=== PATIENT | female | born 1995 | race Two or more races ===

== ENCOUNTER → 2022-08-03 | Outpatient (CLI) | payer OTHER ==
[~2022-08-03] MED LIST: VIEN1TAB PO
== END ==
LOC: M LABSMTC 08:58
PROVIDERS: ATTEND Anesthesiology
DX: Z01.818 Encounter for other preprocedural examination (principal); Z11.52 Encounter for screening for COVID-19

== ENCOUNTER 2022-08-08 10:30 | Day surgery (SDC) | payer OTHER ==
[~2022-08-08] VITALS: Ht 152.4 cm; Wt 68.0 kg
[2022-08-08] MEDS ORDERED: CLINDAMYCIN 900 MG in IV 1 EA IV ONE (11:05)
[2022-08-08] MEDS ORDERED: LR 1,000 ML IV SCH (11:25)
[2022-08-08] MEDS ORDERED: LIDOCAINE 2% 100MG/5ML SDV (FOR ANES.) As Ordered ONE (12:02)
[2022-08-08] MEDS ORDERED: ROCURONIUM BROMIDE 50MG/5ML VIAL As Ordered ONE (12:02)
[2022-08-08] MEDS ORDERED: ONDANSETRON 4MG 2ML VIAL As Ordered ONE (12:02)
[2022-08-08] MEDS ORDERED: propofoL 200 MG/20 ML VIAL As Ordered ONE (12:02)
[2022-08-08] MEDS ORDERED: SUGAMMADEX SODIUM 500 MG/5 ML VIAL (BRIDION) As Ordered ONE (12:02)
[2022-08-08] MEDS ORDERED: MIDAZOLAM INJ 2MG/2ML VIAL As Ordered ONE (12:25)
[2022-08-08] MEDS ORDERED: fentaNYL 100 MCG/2 ML INJECTION As Ordered ONE (12:25)
[2022-08-08] MEDS ORDERED: EPINEPHrine 1MG/ML INJ 30ML MD-VIAL As Ordered ONE (12:28)
[2022-08-08] MEDS ORDERED: SILVER NITRATE APPLICATOR (1 = QTY 10) As Ordered ONE (12:28)
[2022-08-08] MEDS ORDERED: MUPIROCIN 2% OINT 22 GM TUBE As Ordered ONE (12:28)
[2022-08-08] MEDS ORDERED: METHYLENE BLUE 0.5% (5MG/ML) 10 ML AMP (PROVAYBLUE) As Ordered ONE (12:28)
[2022-08-08] MEDS ORDERED: OXYMETAZOLINE 0.05% NASAL SPRAY (AFRIN) As Ordered ONE (12:28)
[2022-08-08] MEDS ORDERED: THROMBIN 5,000 UNITS VIAL As Ordered ONE (12:28)
[2022-08-08] MEDS ORDERED: LIDOCAINE 1% SDV 30ML VIAL As Ordered ONE (12:51)
[2022-08-08] MEDS ORDERED: LIDOCAINE W/EPINEPHRINE 1% 20ML VIAL As Ordered ONE (12:51)
[2022-08-08] MEDS ORDERED: ACETAMINOPHEN 1000MG 100ML IV BAG As Ordered ONE ×2 (12:52→14:54)
[2022-08-08] MEDS ORDERED: ESMOLOL INJ 100MG/10ML VIAL As Ordered ONE (13:13)
[2022-08-08 15:56] VITALS: BP 135/74
== END 2022-08-08 16:19 | disposition home or self-care (01) ==
LOC: M SDC 10:30
PROVIDERS: ATTEND Otolaryngology
DX: J35.2 Hypertrophy of adenoids (principal); J34.2 Deviated nasal septum; Z88.0 Allergy status to penicillin
CPT/HCPCS: 31237; 81025; 88305; J0131; J0171; J1100; J2250; J2405; J3010; Q9968; S0077

== ENCOUNTER 2022-10-12 08:20 | Day surgery (SDC) | payer OTHER ==
[~2022-10-12] VITALS: Ht 152.4 cm; Wt 68.9 kg
[2022-10-12] MEDS ORDERED: LR 1,000 ML IV SCH ×2 (08:25→11:10)
[2022-10-12] MEDS ORDERED: CLINDAMYCIN 900 MG in IV 1 EA IV ONE (09:35)
[2022-10-12] MEDS ORDERED: propofoL 200 MG/20 ML VIAL As Ordered ONE (10:23)
[2022-10-12] MEDS ORDERED: ROCURONIUM BROMIDE 50MG/5ML VIAL As Ordered ONE (10:23)
[2022-10-12] MEDS ORDERED: LIDOCAINE 2% 100MG/5ML SDV (FOR ANES.) As Ordered ONE (10:23)
[2022-10-12] MEDS ORDERED: HYDROmorphone HCL 2MG/ML 1ML VIAL As Ordered ONE (10:23)
[2022-10-12] MEDS ORDERED: ONDANSETRON 4MG 2ML VIAL As Ordered ONE (10:33)
[2022-10-12] MEDS ORDERED: ACETAMINOPHEN 1000MG 100ML IV BAG As Ordered ONE (10:35)
[2022-10-12] MEDS ORDERED: SUGAMMADEX SODIUM 500 MG/5 ML VIAL (BRIDION) As Ordered ONE (11:00)
[2022-10-12] MEDS ORDERED: fentaNYL 100 MCG/2 ML INJECTION IV PRN (11:10)
[2022-10-12] MEDS ORDERED: oxyCODONE 5MG TAB PO PRN (11:10)
[2022-10-12] MEDS ORDERED: ONDANSETRON 4MG 2ML VIAL IV PRN (11:10)
[2022-10-12] MEDS: HYDROMORPHONE HCL 0.5 MG/ 0.5 ML SYRINGE IV PRN ×2 (11:49→11:54)
[2022-10-12 13:17] VITALS: BP 165/70
== END 2022-10-12 13:22 | disposition home or self-care (01) ==
LOC: M SDC 08:20
PROVIDERS: ATTEND Otolaryngology
DX: J35.2 Hypertrophy of adenoids (principal); Z79.899 Other long term (current) drug therapy; Z88.0 Allergy status to penicillin
CPT/HCPCS: 42831; 81025; J0131; J1100; J1170; J2405

== ENCOUNTER → 2023-08-01 | Outpatient (REF) | payer OTHER | LOC: M SFHCWAGY 18:10 | PROVIDERS: ATTEND Nurse Practitioner Family | DX: Z12.4 Encounter for screening for malignant neoplasm of cervix (principal); R87.625 Unsatisfactory cytologic smear of vagina | CPT/HCPCS: 87624; G0123 ==

== ENCOUNTER → 2023-08-16 | Outpatient (CLI) | payer OTHER ==
[2023-08-16 07:57] LABS: BASO # 0.1 10^3/uL (0.0-0.2); BASO % 0.8 % (0.0-1.0); EOS # 0.8 10^3/uL (0.0-0.5); EOS % 8.1 % (0.0-3.0); HEMATOCRIT 42.2 % (36.0-47.0); HEMOGLOBIN 13.8 g/dl (12.0-15.5); LYMPH # 1.6 10^3/uL (1.5-5.0); LYMPH % 16.6 % (24.0-44.0); MEAN CORPUSCULAR HEMOGLOBIN 28.1 pg (27.0-33.0); MEAN CORPUSCULAR HGB CONC 32.7 g/dl (32.0-36.5); MEAN CORPUSCULAR VOLUME 85.9 fl (80.0-96.0); MONO # 0.4 10^3/uL (0.0-0.8); MONO % 4.7 % (2.0-8.0); NEUTROPHILS # 6.5 10^3/uL (1.5-8.5); NEUTROPHILS % 69.5 % (36.0-66.0); PLATELET COUNT, AUTOMATED 220 10^3/uL (150-450); RED BLOOD COUNT 4.91 10^6/uL (4.00-5.40); WHITE BLOOD COUNT 9.3 10^3/uL (4.0-10.0)
[2023-08-16 08:22] LABS: ALBUMIN 3.5 G/DL (3.2-5.2); ALKALINE PHOSPHATASE 81 U/L (46-116); ALT/SGPT 12 U/L (7.0-40); AST/SGOT 11 U/L (<34); BILIRUBIN,TOTAL 0.4 MG/DL (0.3-1.2); BLOOD UREA NITROGEN 10 MG/DL (9-23); CALCIUM LEVEL 9.2 MG/DL (8.5-10.1); CARBON DIOXIDE LEVEL 28 MMOL/L (20-31); CHLORIDE LEVEL 111 MMOL/L (98-107); CHOLESTEROL LEVEL 122 MG/DL (<200); CREATININE FOR GFR 0.99 MG/DL (0.55-1.30); GLOMERULAR FILTRATION RATE > 60.0 (>60); GLUCOSE, FASTING 89 MG/DL (60-100); HDL CHOLESTEROL 38.1 MG/DL (>40); LDL CHOLESTEROL 64.3 MG/DL (<100); NON-HDL-C 83.9 MG/DL; POTASSIUM SERUM 4.7 MMOL/L (3.5-5.1); SODIUM LEVEL 144 MMOL/L (136-145); TOTAL PROTEIN 6.6 G/DL (5.7-8.2); TRIGLYCERIDES LEVEL 98 MG/DL (<150)
[2023-08-16 08:24] LABS: THYROID STIMULATING HORMONE 2.601 uIU/ML (0.55-4.78)
== END ==
LOC: M LAB 07:21
PROVIDERS: ATTEND Physician Assistant
DX: R03.0 Elevated blood-pressure reading, without diagnosis of hypertension (principal); Z13.6 Encounter for screening for cardiovascular disorders

== ENCOUNTER → 2023-08-20 | Outpatient (REF) | payer OTHER | LOC: M SFHCWAGY 10:07 | PROVIDERS: ATTEND Nurse Practitioner Family | DX: Z01.419 Encounter for gynecological examination (general) (routine) without abnormal findings (principal); Z77.9 Other contact with and (suspected) exposures hazardous to health ==

== ENCOUNTER → 2023-11-03 | Outpatient (CLI) | payer OTHER | LOC: M LAB 08:38 | PROVIDERS: ATTEND Allergy & Immunology Allergy | DX: J31.0 Chronic rhinitis (principal) ==

== ENCOUNTER → 2024-07-12 | Outpatient (CLI) | payer OTHER ==
[2024-07-12 09:53] LABS: BASO # 0.1 10^3/uL (0.0-0.2); EOS # 0.5 10^3/uL (0.0-0.5); EOS % 8.3 % (0.0-3.0); HEMATOCRIT 41.9 % (36.0-47.0); HEMOGLOBIN 13.9 g/dl (12.0-15.5); LYMPH # 1.6 10^3/uL (1.5-5.0); LYMPH % 26.3 % (24.0-44.0); MEAN CORPUSCULAR HEMOGLOBIN 28.8 pg (27.0-33.0); MEAN CORPUSCULAR HGB CONC 33.2 g/dl (32.0-36.5); MEAN CORPUSCULAR VOLUME 86.7 fl (80.0-96.0); MONO # 0.3 10^3/uL (0.0-0.8); MONO % 5.4 % (2.0-8.0); NEUTROPHILS # 3.5 10^3/uL (1.5-8.5); NEUTROPHILS % 58.7 % (36.0-66.0); PLATELET COUNT, AUTOMATED 235 10^3/uL (150-450); RED BLOOD COUNT 4.83 10^6/uL (4.00-5.40); WHITE BLOOD COUNT 5.9 10^3/uL (4.0-10.0)
[2024-07-12 10:18] LABS: ALBUMIN 3.7 G/DL (3.2-5.2); ALKALINE PHOSPHATASE 86 U/L (35-104); ALT/SGPT 11 U/L (7.0-40); AST/SGOT 13 U/L (<34); BILIRUBIN,TOTAL 0.6 MG/DL (0.3-1.2); BLOOD UREA NITROGEN 11 MG/DL (9-23); CALCIUM LEVEL 9.3 MG/DL (8.5-10.1); CARBON DIOXIDE LEVEL 28 MMOL/L (20-31); CHLORIDE LEVEL 108 MMOL/L (98-107); CREATININE FOR GFR 0.97 MG/DL (0.55-1.30); GLOMERULAR FILTRATION RATE > 60.0 (>60); GLUCOSE, FASTING 80 MG/DL (60-100); SODIUM LEVEL 143 MMOL/L (136-145); TOTAL PROTEIN 6.8 G/DL (5.7-8.2)
[2024-07-12 10:20] LABS: TOTAL 25(OH) VITAMIN D 40.5 NG/ML (20.0-100.0)
== END ==
LOC: M LAB 08:59
DX: Z30.41 Encounter for surveillance of contraceptive pills (principal); Z76.89 Persons encountering health services in other specified circumstances; R09.81 Nasal congestion